=== PATIENT | female | born 1930 | race Caucasian/White ===

== ENCOUNTER → 2018-07-15 | Outpatient (CLI) | payer OTHER ==
[~2018-07-15] MED LIST: ASPIR 8181 MG PO; HYDROCHLOROTHIA25 M1 PO; LEVOTHYROXINE 0.1 MG PO
== END ==
LOC: HYPER 07:02
DX: E11.622 Type 2 diabetes mellitus with other skin ulcer (principal); L98.411 Non-pressure chronic ulcer of buttock limited to breakdown of skin; L89.310 Pressure ulcer of right buttock, unstageable; L89.303 Pressure ulcer of unspecified buttock, stage 3; E78.5 Hyperlipidemia, unspecified; Z79.84 Long term (current) use of oral hypoglycemic drugs; Z96.652 Presence of left artificial knee joint

== ENCOUNTER → 2018-08-07 | Outpatient (CLI) | payer OTHER | LOC: HYPER 06:47 | DX: E11.622 Type 2 diabetes mellitus with other skin ulcer (principal); L98.411 Non-pressure chronic ulcer of buttock limited to breakdown of skin; L89.43 Pressure ulcer of contiguous site of back, buttock and hip, stage 3; L89.310 Pressure ulcer of right buttock, unstageable; E78.5 Hyperlipidemia, unspecified; Z79.84 Long term (current) use of oral hypoglycemic drugs; Z96.652 Presence of left artificial knee joint ==

== ENCOUNTER 2019-02-06 11:26 | Inpatient (IN) | payer OTHER ==
[~2019-02-06] VITALS: Ht 160 cm; Wt 85.4 kg
[2019-02-06 11:26] VITALS: BP 181/71
[2019-02-06] MEDS ORDERED: [UNRECOGNIZED DRUG - OTHER] PO (11:35)
[2019-02-06 11:43] LABS: ABSOLUTE NEUTROPHILS 6.3 thou/uL (1.4-8.2); BASOPHILS 0.8 % (0.0-2.0); WBC 8.9 thou/uL (4.0-11.0)
[2019-02-06 11:47] LABS: EOSINOPHILS 2.4 % (0.0-3.0); HEMATOCRIT 44.2 % (37.0-47.0); HEMOGLOBIN 15.5 gm/dL (12.0-15.0); LYMPHOCYTES 19.6 % (24.0-44.0); MCH 29.7 pg (26.0-34.0); MCV 84.9 fL (80.0-100.0); MONOCYTES 6.3 % (1.0-8.0); PLATELET COUNT 111 thou/uL (150-400); POLYS 70.9 % (36.0-66.0); RBC 5.21 mil/uL (4.20-5.00); RDW 14.6 % (10.5-14.5)
[2019-02-06 12:16] LABS: ALBUMIN 3.8 g/dL (3.4-5.0); ANION GAP 11 mmol/L (7-16); BUN 13 mg/dL (7-18); CALCIUM 8.8 mg/dL (8.5-10.1); CHLORIDE 82 mmol/L (98-107); CO2 24 mmol/L (21-32); CREATININE 0.8 mg/dL (0.6-1.0); GLUCOSE 148 mg/dL (74-106); LIPASE 149 U/L (73-393); MAGNESIUM 1.5 mg/dL (1.8-2.4); SGOT 22 U/L (15-37); SGPT 20 U/L (30-65); TOTAL BILIRUBIN 0.5 mg/dL (<0.1-1.0); TOTAL PROTEIN 7.7 g/dL (6.4-8.2); TROPONIN-I <0.06 ng/mL (<0.06)
[2019-02-06 12:18] LABS: POTASSIUM 2.9 mmol/L (3.5-5.1); SODIUM 117 mmol/L (136-145)
[2019-02-06 12:52] LABS: URINE BILIRUBIN NEGATIVE (Negative); URINE BLOOD NEGATIVE (Negative); URINE CLARITY SL CLOUDY; URINE COLOR YELLOW; URINE GLUCOSE-RANDOM* NEGATIVE (Negative); URINE KETONES NEGATIVE (Negative); URINE NITRITE-REFLEX NEGATIVE (Negative); URINE PROTEIN (DIPSTICK) NEGATIVE (Negative); URINE SPECIFIC GRAVITY 1.015 (1.005-1.035); URINE UROBILINOGEN 0.2 E.U./dl (0.2-1.0)
[2019-02-06 12:53] LABS: URINE LEUKOCYTES-REFLEX 1+ (Negative)
[2019-02-06 13:05] LABS: BACTERIA-REFLEX 1-9 Few /HPF (None Seen); CASTS None Seen /LPF (None Seen); CRYSTALS None Seen /LPF (None Seen)
[2019-02-06 13:06] LABS: URINE RBC 0-2 Rare /HPF (0-2); WBC CLUMPS Moderate (None Seen)
[2019-02-06 13:07] LABS: SQUAMOUS 0-3 Few /LPF (0-3)
[2019-02-06 13:58] VITALS: BP 142/85
[2019-02-06 14:09] VITALS: BP 141/84
--- NOTE | 2019-02-06 15:16 | EKG ---
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: : 1930 Requested By: Alison Silva Order Number: [id number] MD: Miguel Ángel Whitfield Measurements Intervals [place] Rate: 57 P: 18 PA: 144 QRS: 15 QRSD: 93 T: QT: 425 QTc: 414 Interpretive Statements Sinus rhythm Nonspecific T abnormalities, lateral leads Compared to ECG 05/24/2015 00:56:25 No significant changes Electronically Signed On 02-06-2019 15:16:05 CDT by Miguel Ángel Whitfield [email or web address] ��������������������������������������������� <ELECTRONICALLY SIGNED> ���������������������������������������� By: Miguel Ángel Whitfield MD ��������������������������������������������� 02/06/19 1516 1132 1132 Miguel Ángel Whitfield MD /EPI
[2019-02-06 15:47] VITALS: BP 193/83
--- NOTE | 2019-02-06 16:12 | NUR ---
89 YO FEMALE ADMITTED BY CART FROM ED, A&OX4, FIELD PIV IN L WRIST INFUSING NS AT 80/HR. TRANSFERS TO BSC WITH MAX ASSIST. PT IS ON FALL RISK BED ALARM IS ON. ORIENTED PT TO ROOM, CALL LIGHT W/I REACH.
[2019-02-06 16:29] LABS: TSH 4.327 uIU/mL (0.358-3.740)
[2019-02-06 19:33] VITALS: BP 157/57
[2019-02-06 21:24] LABS: POTASSIUM 3.7 mmol/L (3.5-5.1)
--- NOTE | 2019-02-07 01:27 | NUR ---
ASSESSMENT: PT REMAIN ALERT AND ORIENT TIMES THREE, SOMETIMES SLOW TO RESPOND VERBALLY. DENIE PAIN, SOB AND NAUSEA. DID STATE THAT SHE WAS SLEEPY AND TIRED. Na = 123 and K+ = 3.7 RIGHT UE IS WEAK R/T AN OLD INJURY TO THE RIGHT SHOULDER. BLOOD PRESSURE WAS 157/57, AFEBRILE. URINE AND BLOOD CULTURES WITH RESULTS PENDING. SR-SB PER MONITOR. SLOW PROGRESS TOWARDS DC GOALS. WILL CONTINUE TO MONITOR.
[2019-02-07 03:19] VITALS: BP 142/72
[2019-02-07 06:02] LABS: CREATININE 0.8 mg/dL (0.6-1.0); HEMATOCRIT 41.6 % (37.0-47.0); HEMOGLOBIN 14.5 gm/dL (12.0-15.0); MAGNESIUM 1.9 mg/dL (1.8-2.4); MCH 29.8 pg (26.0-34.0); MCHC 34.9 g/dL (28.0-37.0); MCV 85.4 fL (80.0-100.0); POTASSIUM 3.9 mmol/L (3.5-5.1); RBC 4.87 mil/uL (4.20-5.00); RDW 14.8 % (10.5-14.5); WBC 5.6 thou/uL (4.0-11.0)
[2019-02-07 06:07] LABS: CALCIUM 8.8 mg/dL (8.5-10.1)
[2019-02-07 07:25] VITALS: BP 155/76
--- NOTE | 2019-02-07 13:59 | NUR ---
DISCHARGE PLANNING. PATIENT ANTICIPATED DISCHARGE OVER THE WEEKEND. POST ACUTE CARE RECOMMENDED AT DISCHARGE. REFERR[facility] T[facility]OCI[facility] ATTORNEY, FOR POST ACUTE CARE NEEDS. CALL PLACED TO KOFI TO NOTIFY. KOFI TO REVIEW REFERRAL AND CONTACT CM. UNIT CM/SW AWARE. FOLLOWING.
[2019-02-07 14:13] VITALS: BP 141/72
--- NOTE | 2019-02-07 15:15 | NUR ---
PT ADMITTED RELATED TO HYPONATREMIA, UTI, BRONCHITIS. CM REVIEWED CHART AND SPOKE WITH CARE TEAM. PT IS A&O X4. CM ROLE INTRODUCED. PT INDICATED SHE LIVES IN AN APARTMENT ALONE WITH NO STEPS TO ENTER AND NO STEPS INSIDE. PT INDICATED THERE IS ELEVATOR ASSESS. 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 PT INDICATED NO HH HX. PT INDICATED SHE WAS INTERESTED IN A POST ACUTE CARE STAY AND SHE WAS INTERESTED IN REFERRAL BEING SENT TO [facility] FOR REVIEW FOR POSSIBLE ADMISSION. REFERRAL SENT. CM TO FOLLOW INDICATED WITH DC PLANNING.
--- NOTE | 2019-02-07 17:53 | NUR ---
AAOX4 PLESANTLY CONFUSED. WEARS BRIEFS FOR INCONTINECE. UP TO BR WITH SLOW STEADY GAIT. FAIR APPETITE. IV LEFT WRIST WITH NS AT 80. VISITING WITH FAMILY.
[2019-02-07 21:04] VITALS: BP 198/80
[2019-02-07 22:00] VITALS: BP 160/70
[2019-02-08 03:46] VITALS: BP 174/76
--- NOTE | 2019-02-08 03:55 | NUR ---
ASSESSMENT: PT REMAIN ALERT AND ORIENT TIMES THREE, DOES HAVE BOUTS OF CONFUSION/FORGETFULNESS. PT WAS ALL UPSET BECAUSE SHE DID NOT HAVE EXTRA BRIEFS AVAILABLE AT THE BED SIDE WHICH WERE SUPPOSED TO BE ORDERED EARLIER. PT'S BP WAS ELEVATED AFTER GETTING BACK TO BED. RECHECKED AFTER PT SETTLED DOWN AND BP DROPPED TO 140/72. PT DEVELOPED A NON-PRODUCTIVE COUGH THIS SHIFT THAT SHE DID NOT HAVE LAST SHIFT. SLOW PROGRESS TOWARDS DC GOALS,. WILL CONTINUE TO MONITOR.
[2019-02-08 05:32] LABS: HEMATOCRIT 40.7 % (37.0-47.0); HEMOGLOBIN 13.7 gm/dL (12.0-15.0); MCH 29.6 pg (26.0-34.0); MCHC 33.6 g/dL (28.0-37.0); MCV 88.2 fL (80.0-100.0); RBC 4.61 mil/uL (4.20-5.00); WBC 9.9 thou/uL (4.0-11.0)
[2019-02-08 05:53] LABS: CALCIUM 8.4 mg/dL (8.5-10.1); CREATININE 0.7 mg/dL (0.6-1.0); MAGNESIUM 1.8 mg/dL (1.8-2.4); POTASSIUM 4.1 mmol/L (3.5-5.1)
[2019-02-08 08:00] VITALS: BP 146/60
[2019-02-08 15:00] VITALS: BP 148/57
--- NOTE | 2019-02-08 17:20 | NUR ---
Received awake on bed. Due medication given as prescribed. On room air. With NS at 80cc/hr at right hand. Able to pass urine with minimal-moderate assist, with walker and gait belt. Patient coughing, able to expectorate phlegm- Dr. Esparza informed; sputum sample sent to laboratory. Chest xray done. On falls risk, bed and chair alarm on- falls protocol observed. Patient referred to Dr. Menendez- medical records secretary informed re: consult. Patient with skin tear at right buttock, photo taken and filed in folder, nurse in charge informed. A+0 x3. Patient turned every 2 hours and able to sit out on chair, limited to 2-3 hours, barrier cream applied.
--- NOTE | 2019-02-08 19:33 | NUR ---
Nursing notes- Day shift ADDENDUM Patient with order from Dr Real to submit sputum specimen, Dr asked if to send another specimen to lab since patient submitted this AM- As per Dr. Esparza, to just send 1 specimen- second order cancelled.
[2019-02-08 20:57] VITALS: BP 165/84
--- NOTE | 2019-02-09 04:02 | NUR ---
Pt. has been up to the bathroom several times during the night with frequency. She offers no c/o pain or discomfort. Bed alarm is on.
[2019-02-09 05:21] LABS: HEMATOCRIT 42.1 % (37.0-47.0); HEMOGLOBIN 14.4 gm/dL (12.0-15.0); MCH 29.8 pg (26.0-34.0); MCHC 34.1 g/dL (28.0-37.0); MCV 87.5 fL (80.0-100.0); RBC 4.82 mil/uL (4.20-5.00); RDW 15.2 % (10.5-14.5); WBC 10.1 thou/uL (4.0-11.0)
[2019-02-09 05:31] LABS: CALCIUM 8.8 mg/dL (8.5-10.1); CREATININE 0.7 mg/dL (0.6-1.0); MAGNESIUM 1.8 mg/dL (1.8-2.4); POTASSIUM 3.8 mmol/L (3.5-5.1)
[2019-02-09 06:45] VITALS: BP 184/79
[2019-02-09 08:08] VITALS: BP 194/82
[2019-02-09 13:12] VITALS: BP 164/62
--- NOTE | 2019-02-09 17:25 | NUR ---
Received awake on bed. With NS at 80cc/hr. Pt wound at R buttock observed, still open but not bleeding, barrier cream applied patient turned regularly and sitting on chair limited at 2-3 hours. able to pass urine using bscommode. Pt with BP of 194/82 for 7am, rechecked 185/76, Dr. Esparza informed; Amlodipine increased to 10mg- given as prescribed. Pt complained unable to open bowels, Miralax given as prescribed, this PM patient complained still unable to open bowels DR Esparza informed- for KUB xray, to give lactulose 1 time only and to stop IV fluids.
[2019-02-09 20:28] VITALS: BP 178/70
[2019-02-10] VITALS (7 sets, daily range): BP systolic 165–211; BP diastolic 72–86
--- NOTE | 2019-02-10 05:31 | NUR ---
THIS NURSE RECEIVED THE PATIENT VIA WHEELCHAIR WITH AIDE FROM ROOM 461 AT 0505. NO C/O PAIN. ELEVATED BP AND WILL MONITOR. SALINE LOCK FLUSHED W/O COMPLICATION. GIVEN LACTULOSE BEFORE TRANSFER WITH NO RESULTS AT THIS TIME, HOWEVER, REPORTS SHE IS PASSING GAS. WILL MONITOR BS PER ORDER. DRY COUGH NOTED. SCD'S OPERATING. RESTING QUIETLY. WILL MONITOR.
[2019-02-10 06:35] LABS: CALCIUM 9.2 mg/dL (8.5-10.1); CREATININE 0.8 mg/dL (0.6-1.0); MAGNESIUM 1.9 mg/dL (1.8-2.4); POTASSIUM 3.7 mmol/L (3.5-5.1)
[2019-02-10 07:01] LABS: HEMOGLOBIN 15.4 gm/dL (12.0-15.0); MCHC 34.2 g/dL (28.0-37.0); RBC 5.12 mil/uL (4.20-5.00); RDW 15.5 % (10.5-14.5); WBC 10.3 thou/uL (4.0-11.0)
--- NOTE | 2019-02-10 15:36 | NUR ---
WOUND CONSULT: PT. WAS SEEN TODAY BY DR. WING AND MYSELF. PT. HAS A FUNGAL RASH WITH FRICTION/SHEARING INJURYS NOTED TO HER SACRUM. THIS IS BECAUSE SHE SUFFERES FROM INCONTINECE AND WHEN SHE GOES TO STAND UP SHE SCOOTS HER BOTTOM. RECOMMENDATIONS: WOUND CARE TO SACRUM: GENTLY CLEANSE AREA WITH WOUND CLEANSER OR NORMAL SALINE, APPLY ANTIFUNGAL CREAM, LEAVE OPEN TO AIR, COMPLETE CARES DAILY AND PRN. PT. AND STAFF NURSE WERE INSTRUCTED ON PLAN OF CARE.
--- NOTE | 2019-02-10 18:19 | NUR ---
ASSUMED CARE OF PATIENT AT 0715, PATIENT ALERT AND ORIENTED X 4. PATIENT UP WITH SBA TO BSC OR BATHROOM WITH WALKER. PATIENT DENIES PAIN THIS SHIFT. PATIENT HAS LEFT FOREARM IV, FLUSHED WITH NS AND REMAINS PATIENT. PATIENT HAS BRUISED/SKIN TEAR TO RIGHT BUTTOCK, WOUND CARE SAW PATIENT LEFT SPECIAL CREAM TO APPLY OPEN TO AIR. PATIENT C/O CONSTIPATION, RECEIVED SENNA, MIRALAX, AND DULCOLAX SUPP. PATIENT JUST HAD LARGE SOFT STOOL. PATIENT STARTED NEW ANTIBIOTIC, DOXY DISCONTINUED AND STARED CEFDINIR THIS EVENING. IV FLUIDS STARTED NS AT 100CC/HR, DUE TO SODIUM STILL LOW. WILL CONTINUE TO MONITOR.
--- NOTE | 2019-02-11 05:09 | NUR ---
Assumed pt care at 1900. Pt A/OX4 with forgetfulness noted but able to make needs known.Denies pain on assessment. Pt is up with assist of 1 RW/GB to BR. Urine cloudy with strong odor noted ,fluids encouraged. Continues on Cefdnir/UTI,no allergic reaction noted. IVF infusing via LFA IV without any problems. Fall precautions in place and call light placed within reach,will continue to monitor pt.
[2019-02-11 09:48] LABS: HEMATOCRIT 47.5 % (37.0-47.0); HEMOGLOBIN 15.8 gm/dL (12.0-15.0); MCH 29.4 pg (26.0-34.0); MCHC 33.3 g/dL (28.0-37.0); MCV 88.3 fL (80.0-100.0); RBC 5.38 mil/uL (4.20-5.00); RDW 15.5 % (10.5-14.5); WBC 11.8 thou/uL (4.0-11.0)
[2019-02-11 09:53] LABS: CALCIUM 9.2 mg/dL (8.5-10.1); CREATININE 0.8 mg/dL (0.6-1.0); POTASSIUM 3.7 mmol/L (3.5-5.1)
--- NOTE | 2019-02-11 16:03 | NUR ---
CARE TEAM INDICATED THAT PT WILL LIKELY BE MEDICALLY STABLE TO DISCHARGE TO [facility] TOMORROW FOR SKILLED HRAB. CM SPOKE WITH KOFI IN ADMISSIONS AND SHE INDICATED THAT THEIR AUTH IS WILL STILL BE GOOD. CM CALLED AND LEFT FOR PT'S SON ARNALDO. CM TO FOLLOW INDICATED WITH DC PLANNING.
--- NOTE | 2019-02-11 19:38 | NUR ---
ASSUMED CARE OF PATIENT AT 0715, PATIENT ALERT AND ORIENTED X 4, CAN BE FORGETFUL. PATIENT DENIES PAIN THIS SHIFT. PATIENT UP WIT SBA TO BSC AND BATHROOM. PATIENT HAS LEFT FOREARM IV IN PLACE WITH NS AT 100CC/HR. PATIENT VOIDING FREQUENTLY, AND NO BM THIS SHIFT. BLOOD SUGAR MONITORING ORDRED, S/S INSULIN GIVEN ORDERED. PATIENT HAS BRUISED/PURPLE AREA TO RIGH BUTTOCK, ANTIFUNGAL CREAM APPLIED. WILL CONTINUE TO MONITOR.
--- NOTE | 2019-02-11 19:51 | HC ---
[facility] [place] [address] CONSULTATION Name: MULUGETA GOULD Room #: 223-P ADM IN M.R.#: [id number] Admission: 02/06/19 ������������������ Attend Phys: Perry Esparza MD Discharge: ������������������ Date of : [birth year]/30/[birth year] Report #: [id number] THIS REPORT FOR: //name// CC: Perry Cifuentes DATE OF SERVICE: 02/10/2019 CHIEF COMPLAINT: Sacral gluteal ulceration. HISTORY OF PRESENT ILLNESS: This is an 89-year-old female patient with a history of hypothyroidism and hypertension was admitted due to weakness, was recently diagnosed with bronchitis. She has had multiple falls at home. We have been asked to see her with regard to an area of discoloration on her sacral gluteal region. PAST MEDICAL HISTORY: Positive for history of atrial fibrillation, hypertension, hypothyroidism, hyponatremia and an upper respiratory infection. ALLERGIES: Include AMOXICILLIN, AZITHROMYCIN, CEPHALOSPORINS, CLINDAMYCIN, DOXYCYCLINE, ERYTHROMYCIN, FLUOROURACIL, GLIMEPIRIDE, LEVAQUIN, LISINOPRIL, MACROLIDE ANTIBIOTICS, METRONIDAZOLE, MOXIFLOXACIN, NITROFURANTOIN, OFLOXACIN, PENICILLINS, QUINOLONES, SALICYLATE, SULFA, SODIUM BENZOATE AND SODIUM PHENYLACETATE. MEDICATIONS: Include Synthroid, aspirin, hydrochlorothiazide and psyllium seed laxative powder. SOCIAL HISTORY: Negative for tobacco use. Positive for occasional alcohol consumption on special occasions. FAMILY HISTORY: Noncontributory. REVIEW OF SYSTEMS: CONSTITUTIONAL: The patient denies fever, chills or weight loss. NEUROLOGICAL: The patient denies focal weakness. ENT: The patient denies earache, nasal drainage or sore throat. CARDIOVASCULAR: The patient denies chest pain, palpitation or diaphoresis. PULMONARY: The patient does note cough and mild shortness of breath. GASTROINTESTINAL: The patient denies nausea, vomiting, diarrhea or abdominal pain. ORTHOPEDIC: Pain and swelling in the extremities. Other systems in a 14-point review of systems are negative. PHYSICAL EXAMINATION: [facility] [address] [place] [address] CONSULTATION Name: MULUGETA GOULD Room #: [address] [place] [address] IN M.R.#: [id number] Admission: 02/06/19 ������������������ Attend Phys: Perry Esparza MD Discharge: ������������������ Date of : [birth year]/30/[birth year] Report #: [id number] VITAL SIGNS: At this time include temperature 97.4, pulse 69, respiratory rate 20, and blood pressure 116/72. GENERAL: This is a chronically ill-appearing female patient who appears to be in minimal distress. HEENT: Head is normocephalic. Nose and throat clear. NECK: Supple. LUNGS: Clear. HEART: Irregular without murmur. ABDOMEN: Soft, nontender. Sacral gluteal region demonstrates what appears to be a yeast type dermatitis along with some friction breakdown to the gluteal region bilaterally. No evidence of any deep structural exposure and no evidence of infection. NEUROLOGIC: The patient is alert and moving all 4 extremities spontaneously. LABORATORY DATA: Include white blood cell count 10.3 with hemoglobin of 15.4. Sodium is 131, potassium 3.7, chloride 94, CO2 of 26, BUN 19, creatinine 0.8, albumin is normal at 3.8, and prealbumin is 20.6. CLINICAL IMPRESSION: 1. Sacral gluteal yeast dermatitis and some friction breakdown to the sacral gluteal region. 2. Atrial fibrillation. 3. Bronchitis. 4. Multiple falls. 5. Proteus urinary tract infection. RECOMMENDATIONS: At this point in time, we will recommend an antifungal barrier cream to be applied to the affected area twice daily. We will recommend turning and repositioning while in bed. We will continue to follow her while here in the hospital. I appreciate being asked to see her in consultation. ��������������������������������������������� <ELECTRONICALLY SIGNED> ���������������������������������������� By: Arjun Molina MD ��������������������������������������������� 02/11/191950 01 1013 Arjun Molina MD /nt
[2019-02-11 20:23] VITALS: BP 177/78
[2019-02-12 01:40] VITALS: BP 158/72
--- NOTE | 2019-02-12 02:14 | NUR ---
Assumed pt care at 1900. Pt A/OX4,denies pain on assessment. Up with assist of to [facility]. Pt's BP elevated to 182/83 at 2300 PRN Hydralazine administered and effective Bp 158/72. Voiding w/o complaints of dysuria though urine has a strong odor,PO fluids encouraged. IVF infusing without any problems. Call light/personal items within reach, will continue to monitor pt.
[2019-02-12 06:29] LABS: HEMATOCRIT 45.9 % (37.0-47.0); HEMOGLOBIN 15.2 gm/dL (12.0-15.0); MCH 29.8 pg (26.0-34.0); MCHC 33.1 g/dL (28.0-37.0); MCV 89.8 fL (80.0-100.0); RBC 5.11 mil/uL (4.20-5.00); RDW 15.5 % (10.5-14.5); WBC 11.1 thou/uL (4.0-11.0)
[2019-02-12 06:40] LABS: CALCIUM 8.6 mg/dL (8.5-10.1); CREATININE 0.8 mg/dL (0.6-1.0); POTASSIUM 3.9 mmol/L (3.5-5.1)
[2019-02-12 07:30] VITALS: BP 153/63
[2019-02-12 09:25] VITALS: BP 153/63
--- NOTE | 2019-02-12 10:22 | NUR ---
Nutrition: Pt admitted with bronchitis, seen for LOS. Pt states appetite is good with 100% intake. Last wt 188 lbs on 02/06, up 2 lbs from usual of 186 lbs. BG 104-181, no hx of DM. Likely aggravated by steriod medication. Lispro ordered, on carb controlled diet. Low nutrition risk.
--- NOTE | 2019-02-12 12:13 | NUR ---
PATIENT CARE WAS ASSUMED AT 0715.PATIENT IS ALERT AND ORIENTED X4.PT GETS UP TO THE BATHROOM X1 ASSIST.IV IS INTACT WITH FLUIDS INFUSING.PT HAS NO PAIN AT THIS TIME.PT HAS SOME CONCERNS OF B/P BEING TOO HIGH.MORNING B/P IS 153/63.PATIENT WAS PLACED IN CHAIR WITH ALARM IS PLACE.CALL LIGHT,PHONE, AND PERSONAL BELONGINGS ARE WITHIN REACH.
[2019-02-12] MEDS ORDERED: CEFDINIR300 MG PO (14:05)
[2019-02-12] MEDS ORDERED: HYDRALAZINE 2525 MG PO (14:05)
[2019-02-12] MEDS ORDERED: COZAAR100 MG PO (14:06)
[2019-02-12] MEDS ORDERED: NORVASC10 MG PO (14:06)
[2019-02-12] MEDS ORDERED: PREDNISONE 10 M10 MG PO (14:07)
--- NOTE | 2019-02-12 14:24 | NUR ---
Pt being dc'd to snf at [facility] today. Pt and her son are aware and agreeable. Son awaiting dc time and he will meet her at the facility. Dc production planner scheduler to fax orders and finalize transport time with all parties. Chart copy ready to be sent with the pt. Care team updated. [facility] has insurance auth for admission today.
--- NOTE | 2019-02-12 16:32 | NUR ---
WOUND FOLLOW UP: PT. WAS SEEN TODAY BY DR. WING AND MYSELF. PT. SACRUM IS CLINICALLY BETTER AT THIS TIME. PT. WILL BE DISCHARGING TODAY SO, DISCHARGING PLANNING WAS DISCUSSED. RECOMMENDATIONS: CONTINUE WITH CURRENT PLAN OF CARE. PT. AND STAFF NURSE WERE INSTRUCTED ON PLAN OF CARE.
--- NOTE | 2019-02-12 16:41 | NUR ---
PATIENT WAS DISCAHRGED TO GO TO [facility].PATIENT IS IN STABLE CONDITION.IV WAS TAKEN OUT.PAPERWORK WAS GIVEN TO TRANSPORTATION.REPORT WAS GIVEN TO NURSE HERNANDEZ.
== END 2019-02-12 16:00 | DRG 641 ==
LOC: ER 11:26 → SICU 13:24 → 4W 13:24 → EROBS 13:24 → 4W 14:21 → SICU 02-10 05:24
PROVIDERS: Nurse Practitioner Family; ADMIT Internal Medicine
DX: E87.1 Hypo-osmolality and hyponatremia (principal); N39.0 Urinary tract infection, site not specified; I10 Essential (primary) hypertension; E87.6 Hypokalemia; J20.9 Acute bronchitis, unspecified; J06.9 Acute upper respiratory infection, unspecified; I48.91 Unspecified atrial fibrillation; E03.9 Hypothyroidism, unspecified; B96.4 Proteus (mirabilis) (morganii) as the cause of diseases classified elsewhere; T50.2X5A Adverse effect of carbonic-anhydrase inhibitors, benzothiadiazides and other diuretics, initial encounter; E83.42 Hypomagnesemia; D69.6 Thrombocytopenia, unspecified; D72.829 Elevated white blood cell count, unspecified; L27.0 Generalized skin eruption due to drugs and medicaments taken internally; T45.2X5A Adverse effect of vitamins, initial encounter; Z88.1 Allergy status to other antibiotic agents; Z88.0 Allergy status to penicillin; Z88.2 Allergy status to sulfonamides; Y92.89 Other specified places as the place of occurrence of the external cause; Z79.82 Long term (current) use of aspirin; Z79.899 Other long term (current) drug therapy; Z88.8 Allergy status to other drugs, medicaments and biological substances
CPT/HCPCS: 10045; 15002

== ENCOUNTER 2019-04-12 18:47 | Emergency (ER) | payer OTHER ==
[~2019-04-12] VITALS: Ht 157.5 cm; Wt 85.7 kg
[~2019-04-12 18:47] MED LIST changes: +CEFDINIR300 MG PO; +COZAAR100 MG PO; +HYDRALAZINE 2525 MG PO; +NORVASC10 MG PO; +PREDNISONE 10 M10 MG PO; +[UNRECOGNIZED DRUG - OTHER] PO
[2019-04-12] MEDS ORDERED: SENOKOT-S1 TA2 PO (19:03)
[2019-04-12] MEDS ORDERED: HYDRALAZINE 2525 MG PO ×2 (19:04→19:05)
[2019-04-12 19:25] VITALS: BP 155/73
[2019-04-13] MEDS ORDERED: CEFUROXIME250 MG PO (02:00)
== END 2019-04-12 19:30 | disposition home or self-care (01) ==
LOC: ER 18:47
DX: I10 Essential (primary) hypertension (principal); Z88.1 Allergy status to other antibiotic agents; Z88.2 Allergy status to sulfonamides; Z88.0 Allergy status to penicillin; Z88.8 Allergy status to other drugs, medicaments and biological substances

== ENCOUNTER 2019-04-13 00:07 | Emergency (ER) | payer OTHER ==
[~2019-04-13] VITALS: Ht 157.5 cm; Wt 113.4 kg
[~2019-04-13 00:07] MED LIST changes: +SENOKOT-S1 TA2 PO
[2019-04-13 01:22] LABS: URINE BILIRUBIN NEGATIVE (Negative); URINE BLOOD NEGATIVE (Negative); URINE CLARITY CLEAR; URINE COLOR YELLOW; URINE GLUCOSE-RANDOM* NEGATIVE (Negative); URINE KETONES NEGATIVE (Negative); URINE LEUKOCYTES-REFLEX 2+ (Negative); URINE NITRITE-REFLEX POSITIVE (Negative); URINE PROTEIN (DIPSTICK) NEGATIVE (Negative); URINE SPECIFIC GRAVITY <= 1.005 (1.005-1.035); URINE UROBILINOGEN 0.2 E.U./dl (0.2-1.0)
[2019-04-13 01:26] LABS: ABSOLUTE NEUTROPHILS 6.1 thou/uL (1.4-8.2); BASOPHILS 0.2 % (0.0-2.0); EOSINOPHILS 7.6 % (0.0-3.0); HEMATOCRIT 45.2 % (37.0-47.0); HEMOGLOBIN 15.4 gm/dL (12.0-15.0); LYMPHOCYTES 21.9 % (24.0-44.0); MCH 30.7 pg (26.0-34.0); MCHC 34.1 g/dL (28.0-37.0); MCV 90.3 fL (80.0-100.0); MONOCYTES 6.4 % (1.0-8.0); PLATELET COUNT 224 thou/uL (150-400); POLYS 63.9 % (36.0-66.0); RBC 5.01 mil/uL (4.20-5.00); RDW 17.1 % (10.5-14.5); WBC 9.5 thou/uL (4.0-11.0)
[2019-04-13 01:34] LABS: CALCIUM 9.4 mg/dL (8.5-10.1); CREATININE 0.8 mg/dL (0.6-1.0); POTASSIUM 4.1 mmol/L (3.5-5.1)
[2019-04-13 01:40] LABS: TOTAL BILIRUBIN 0.5 mg/dL (<0.1-1.0); TOTAL PROTEIN 8.1 g/dL (6.4-8.2)
[2019-04-13] MEDS ORDERED: CEFUROXIME250 MG PO (02:00)
[2019-04-13 02:06] LABS: SQUAMOUS 0-3 Few /LPF (0-3)
[2019-04-13 02:07] LABS: CASTS None Seen /LPF (None Seen); MUCUS 0-3 Light strn/LPF (None Seen); URINE RBC None Seen /HPF (0-2); URINE WBC-REFLEX 6-15 Few /HPF (0-5)
[2019-04-13 02:08] LABS: CRYSTALS None Seen /LPF (None Seen)
[2019-04-13 02:42] VITALS: BP 140/64
--- NOTE | 2019-04-13 13:54 | EKG ---
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 : 1930 Requested By: Go Shaffer Order Number: [id number] MD: Tl Griggs Measurements Intervals [place] Rate: 63 P: 58 VT: 178 QRS: 21 QRSD: 103 T: 77 QT: 387 QTc: 397 Interpretive Statements Sinus rhythm Nonspecific T wave abnormality Compared to ECG 02/06/2019 11:32:08 No significant change was found Electronically Signed On 04-13-2019 13:54:02 CDT by Tl Griggs [email or web address] ��������������������������������������������� <ELECTRONICALLY SIGNED> ���������������������������������������� By: Tl Griggs MD, [facility] ��������������������������������������������� 04/13/19 1354 013 013 Tl Griggs MD, FAC /EPI
== END 2019-04-13 02:43 | disposition home or self-care (01) ==
LOC: ER 00:07
PROVIDERS: Emergency Medicine
DX: I10 Essential (primary) hypertension (principal); N39.0 Urinary tract infection, site not specified; Z88.0 Allergy status to penicillin; Z88.2 Allergy status to sulfonamides; Z88.1 Allergy status to other antibiotic agents; Z88.8 Allergy status to other drugs, medicaments and biological substances

== ENCOUNTER 2019-04-20 20:48 | Emergency (ER) | payer OTHER ==
[~2019-04-20] VITALS: Ht 172.7 cm; Wt 86.0 kg
[~2019-04-20 20:48] MED LIST changes: +CEFUROXIME250 MG PO
[2019-04-20 21:29] LABS: ABSOLUTE NEUTROPHILS 5.1 thou/uL (1.4-8.2); BASOPHILS 1.4 % (0.0-2.0); EOSINOPHILS 6.4 % (0.0-3.0); HEMATOCRIT 46.8 % (37.0-47.0); HEMOGLOBIN 15.9 gm/dL (12.0-15.0); LYMPHOCYTES 30.8 % (24.0-44.0); MCH 30.9 pg (26.0-34.0); MONOCYTES 6.7 % (1.0-8.0); PLATELET COUNT 206 thou/uL (150-400); POLYS 54.7 % (36.0-66.0); RBC 5.14 mil/uL (4.20-5.00); RDW 17.3 % (10.5-14.5); WBC 9.4 thou/uL (4.0-11.0)
[2019-04-20 21:31] LABS: URINE BILIRUBIN NEGATIVE (Negative); URINE BLOOD NEGATIVE (Negative); URINE CLARITY CLEAR; URINE COLOR YELLOW; URINE GLUCOSE-RANDOM* NEGATIVE (Negative); URINE KETONES NEGATIVE (Negative); URINE LEUKOCYTES-REFLEX TRACE (Negative); URINE NITRITE-REFLEX NEGATIVE (Negative); URINE PROTEIN (DIPSTICK) 1+ (Negative); URINE SPECIFIC GRAVITY <= 1.005 (1.005-1.035); URINE UROBILINOGEN 0.2 E.U./dl (0.2-1.0)
[2019-04-20 21:33] LABS: ANION GAP 13 mmol/L (7-16); BUN 14 mg/dL (7-18); CALCIUM 10.2 mg/dL (8.5-10.1); CHLORIDE 99 mmol/L (98-107); CO2 24 mmol/L (21-32); CREATININE 0.7 mg/dL (0.6-1.0); GLUCOSE 110 mg/dL (74-106); POTASSIUM 4.5 mmol/L (3.5-5.1); SODIUM 136 mmol/L (136-145)
[2019-04-20 21:43] LABS: ALBUMIN 4.2 g/dL (3.4-5.0); LIPASE 139 U/L (73-393); SGOT 24 U/L (15-37); SGPT 17 U/L (30-65); TOTAL BILIRUBIN 0.5 mg/dL (<0.1-1.0); TOTAL PROTEIN 8.2 g/dL (6.4-8.2); TROPONIN-I <0.06 ng/mL (<0.06)
[2019-04-20 21:49] LABS: BACTERIA-REFLEX None Seen /HPF (None Seen); CASTS None Seen /LPF (None Seen); CRYSTALS None Seen /LPF (None Seen); MUCUS None Seen strn/LPF (None Seen); SQUAMOUS None Seen /LPF (0-3); URINE RBC None Seen /HPF (0-2); URINE WBC-REFLEX None Seen /HPF (0-5)
[2019-04-20] MEDS ORDERED: GABAPENTIN100 MG PO (22:08)
[2019-04-20] MEDS ORDERED: MIRALAX17 GM PO (22:09)
[2019-04-20] MEDS ORDERED: HYDROXYZINE HCL25 M1 PO (22:09)
[2019-04-20 23:15] VITALS: BP 125/63
[2019-04-20] MEDS ORDERED: FLAGYL500 M1 PO (23:25)
[2019-04-20] MEDS ORDERED: CIPROFLOXACIN500 M1 PO (23:25)
--- NOTE | 2019-04-21 07:51 | EKG ---
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 : 1930 Requested By: Lamin Puckett Order Number: [id number] MD: Tl Griggs Measurements Intervals [place] Rate: 159 P: [place]: QRS: 45 QRSD: 82 T: 210 QT: 246 QTc: 401 Interpretive Statements Atrial fibrillation with rapid V-rate Repolarization abnormality, prob rate related Compared to ECG 04/13/2019 01:32:29 Sinus rhythm no longer present ST and T wave abnormality is more pronounced Electronically Signed On 04-21-2019 7:51:12 CDT by Tl Griggs [email or web address] ��������������������������������������������� <ELECTRONICALLY SIGNED> ���������������������������������������� By: Tl Griggs MD, [facility] ��������������������������������������������� 04/21/19 0751 52 52 Tl Griggs MD, [facility] /EPI
== END 2019-04-20 23:40 | disposition home or self-care (01) ==
LOC: ER 20:48
PROVIDERS: Emergency Medicine
DX: I48.2 Chronic atrial fibrillation (principal); K57.32 Diverticulitis of large intestine without perforation or abscess without bleeding; R14.0 Abdominal distension (gaseous); I10 Essential (primary) hypertension; Z88.0 Allergy status to penicillin; Z88.1 Allergy status to other antibiotic agents; Z88.8 Allergy status to other drugs, medicaments and biological substances

== ENCOUNTER 2019-05-05 07:13 | Emergency (ER) | payer OTHER ==
[~2019-05-05] VITALS: Ht 165.1 cm; Wt 84.4 kg
[~2019-05-05 07:13] MED LIST changes: +CIPROFLOXACIN500 M1 PO; +FLAGYL500 M1 PO; +GABAPENTIN100 MG PO; +HYDROXYZINE HCL25 M1 PO; +MIRALAX17 GM PO
[2019-05-05 08:10] LABS: URINE BILIRUBIN NEGATIVE (Negative); URINE BLOOD NEGATIVE (Negative); URINE CLARITY CLEAR; URINE COLOR YELLOW; URINE GLUCOSE-RANDOM* NEGATIVE (Negative); URINE KETONES NEGATIVE (Negative); URINE NITRITE-REFLEX NEGATIVE (Negative); URINE PROTEIN (DIPSTICK) NEGATIVE (Negative); URINE UROBILINOGEN 0.2 E.U./dl (0.2-1.0)
[2019-05-05 08:12] LABS: URINE LEUKOCYTES-REFLEX 1+ (Negative)
[2019-05-05 08:31] LABS: CASTS None Seen /LPF (None Seen); SQUAMOUS >10 Many /LPF (0-3); URINE RBC 0-2 Rare /HPF (0-2); URINE WBC-REFLEX 6-15 Few /HPF (0-5)
[2019-05-05 08:32] LABS: BACTERIA-REFLEX 1-9 Few /HPF (None Seen); CRYSTALS None Seen /LPF (None Seen)
[2019-05-05 08:49] LABS: URINE BILIRUBIN NEGATIVE (Negative); URINE BLOOD NEGATIVE (Negative); URINE CLARITY CLEAR; URINE COLOR YELLOW; URINE GLUCOSE-RANDOM* NEGATIVE (Negative); URINE KETONES NEGATIVE (Negative); URINE LEUKOCYTES-REFLEX NEGATIVE (Negative); URINE NITRITE-REFLEX NEGATIVE (Negative); URINE PROTEIN (DIPSTICK) NEGATIVE (Negative); URINE SPECIFIC GRAVITY <= 1.005 (1.005-1.035); URINE UROBILINOGEN 0.2 E.U./dl (0.2-1.0)
[2019-05-05 09:18] VITALS: BP 122/76
== END 2019-05-05 09:18 | disposition home or self-care (01) ==
LOC: ER 07:13
PROVIDERS: Student in an Organized Health Care Education/Training Program
DX: G89.29 Other chronic pain (principal); M54.9 Dorsalgia, unspecified; I10 Essential (primary) hypertension; Z90.89 Acquired absence of other organs; Z88.1 Allergy status to other antibiotic agents; Z88.0 Allergy status to penicillin; Z88.2 Allergy status to sulfonamides; Z88.6 Allergy status to analgesic agent; Z87.440 Personal history of urinary (tract) infections